=== PATIENT | male | born 1970 | race Caucasian/White ===

== ENCOUNTER → 2021-03-19 | Outpatient (CLI) | payer BC ==
[~2021-03-19] MED LIST: ASPIRIN EC81 MG PO; ATORVASTATIN CA40 MG PO; AVAPRO300 MG PO; BUSPIRONE HCL15 MG PO; CARVEDILOL25 MG PO; DULERA 200 MCG8.8 GM INH; FUROSEMIDE20 MG PO; IBU800 MG PO; POTASSIUM CHLO10 ME1 PO; PROAIR DIGIHAL90 MCG INH
[2021-03-19 10:27] LABS: HEMOGLOBIN 14.6 gm/dl (14.0-17.5); RED BLOOD COUNT 4.76 M/UL (4.20-5.50)
[2021-03-19 10:48] LABS: BUN/CREATININE RATIO 14 (0-10)
== END ==
LOC: OPSV2 08:59
PROVIDERS: Anesthesiology
DX: Z01.812 Encounter for preprocedural laboratory examination (principal); S83.242A Other tear of medial meniscus, current injury, left knee, initial encounter; S83.282A Other tear of lateral meniscus, current injury, left knee, initial encounter; I10 Essential (primary) hypertension; N28.89 Other specified disorders of kidney and ureter
CPT/HCPCS: 36415; 80048; 85027

== ENCOUNTER → 2021-03-26 | Day surgery (SDC) | payer BC ==
[~2021-03-26] MED LIST changes: +HYDROCODON-ACE1 EAC2 PO
== END | disposition home or self-care (01) ==
LOC: OR 06:14
DX: S83.232A Complex tear of medial meniscus, current injury, left knee, initial encounter (principal); S83.252A Bucket-handle tear of lateral meniscus, current injury, left knee, initial encounter; I10 Essential (primary) hypertension; E78.00 Pure hypercholesterolemia, unspecified; M94.262 Chondromalacia, left knee; G47.30 Sleep apnea, unspecified; J45.909 Unspecified asthma, uncomplicated; Z88.0 Allergy status to penicillin; Z79.82 Long term (current) use of aspirin; Z87.891 Personal history of nicotine dependence; Y99.0 Civilian activity done for income or pay; E78.5 Hyperlipidemia, unspecified; E66.01 Morbid (severe) obesity due to excess calories; Z68.41 Body mass index [BMI] 40.0-44.9, adult
CPT/HCPCS: J0171; J0690; J1100; J2001; J2250; J2405; J2704; J3010; J7120